=== PATIENT | female | born 1950 | race Two or more races ===

== ENCOUNTER → 2017-11-27 | Emergency (ER) | payer OTHER ==
[~2017-11-27] VITALS: Ht 157.5 cm; Wt 68.0 kg
[~2017-11-27] MED LIST: AMLOD-VALSA-HC1 EAC1; GLIMEPIRIDE1 MG; LOSARTAN POTASS50 MG; METAFOLBIC TAB1 EACH PO; SYNTHROID75 MCG
== END | disposition home or self-care (01) ==
LOC: ER 00:02
DX: R51 Headache (principal); R20.0 Anesthesia of skin